=== PATIENT | male | born 1950 | race Caucasian/White ===

== ENCOUNTER 2018-10-06 19:24 | Emergency (ER) ==
[2018-10-06 19:37] VITALS: BP 155/79; TEMP 97.5; BMI 33.1
--- NOTE | 2018-10-06 20:15 | CT ---
Exam: Head CT. Date: 10/06/2018. Comparison: None. HISTORY: Fell on that the right-sided head. TECHNIQUE: Helical scan of the brain was performed. FINDINGS: The calvarium is intact. The paranasal sinuses and mastoid air cells are clear. The brainstem and cerebellum are within normal limits. There are benign-appearing ganglial calcifica tions. No abnormal intra or extra-axial fluid, mass or mass effect is present. There is no midline shift or hydrocephalus. No large vessel infarct or hemorrhage is observed. The macias-white interface is maintained. Impression: No acute intracranial findings.
--- NOTE | 2018-10-06 20:19 | CT ---
Exam: CT scan of the cervical spine. Date: 10/06/2018. Comparison: None. HISTORY: Fell and hit the right side of the head. TECHNIQUE: Helical scan of the cervical spine was performed. FINDINGS: No prevertebral soft tissue swelling is seen. There is mild osteophytic spurring loss of joint space and subchondral cysts at C3-4. There is anterior osteophytic spurring at C4-5. There is loss of disc space height with osteophytic spurring at C5-6. There is osteophytic spurring at C6-7. The vertebral body heights are maintained at all levels. The odontoid process is intact. Segmental analysis: C1-2: No abnormalities are seen. C2-3: No abnormalities are seen. C3-4: The canal is congenitally small with mild diffuse disc bulge causing central canal stenosis. There is mild bilateral neural foraminal narrowing from uncinate process arthropathy. C4-5: The canal is congenitally small. The foramen are patent. C5-6: The canal is congenitally small with mild disc osteophyte complex. There is mild right neural foraminal narrowing from uncinate process arthropathy. C6-7: The canal is congenitally small with a small central midline disc protrusion. The foramen are patent. C7-T1: There is no significant impression upon the thecal sac. There is moderate to severe right ne ural foraminal narrowing from facet arthropathy. There is mild left neural foraminal narrowing from facet arthropathy. Impression: No acute osseous abnormality in the cervical spine. 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 If further evaluation is needed then MRI would be suggested.
--- NOTE | 2018-10-06 20:21 | CT ---
Exam: CT chest without contrast Date: 10/06/2018 Comparison: None. History: Right-sided chest pain after a fall hitting the side of a forklift. TECHNIQUE: Axial CT images through the chest were obtained without IV contrast. FINDINGS: No consolidation, pleural effusion, or pneumothorax. There is linear atelectasis in the r ight lower lobe. There are coronary artery calcifications. No pericardial effusion. There are athe romatous changes of the thoracic aorta without aneurysm or intramural hematoma seen. Aortic dissecti on and pulmonary embolism cannot be excluded without IV contrast. No mediastinal or hilar lymphadeno yolis. There are calcified left hilar lymph nodes. No axillary lymphadenopathy. There is bilateral gynecomastia. Acute right sixth and seventh rib fractures are seen. No acute thoracic spine fractur e identified. The sternum is intact. The clavicles are intact. The scapulae are intact. Mild diff use fatty infiltration of the liver. Impression: Acute right sixth and seventh rib fractures.
[2018-10-06] MEDS ORDERED: NORCO 7.5-325 PO STA (20:25)
--- NOTE | 2018-10-06 20:29 | ED.PDOC ---
General ED Provider: Dr. NATI VALDEZ-ER Chief Complaint: Fall Stated Complaint: fell at work--bruising over left eye and right chest wall pain Time Seen by Physician: 19:30 Mode of Arrival: Walk-In Information Source: Patient Exam Limitations: Physical impairment Primary Care Provider: ROGER ROE Nursing and Triage Documentation Reviewed and Agree: Yes Does patient meet sepsis criteria?: No System Inflammatory Response Syndrome: Not Applicable Sepsis Protocol: For patient's 13 years and over: Temp is 96.8 and below OR 101 and greater Pulse >90 BPM Resp >20/minute Acutely Altered Mental Status Are patient's symptoms suggestive of a new infection, such as: -Pneumonia -Skin, Soft Tissue -Endocarditis -UTI -Bone, Joint Infection -Implantable Device -Acute Abdominal Infection -Wound Infection -Meningitis -Blood Stream Catheter Infection -Unknown Trauma/Injury Complaint Exam - Truncal Trauma Complaint/Exam Location of Pain: Reports: Right, Chest Onset: 2 days ago Symptoms Are: Still present Onset of Pain: Reports: Immediate Initial Severity: Mild Current Severity: Moderate Mechanism: Reports: Fall Aggravating: Reports: Movement, Deep breathing, Cough Alleviating: Reports: None Associated Signs and Symptoms: Reports: Chest pain Immobilization Removed Post Exam: No Vertebral Tenderness Present: No Vertebral Deformity Present: No Trachial Deviation Present: No JVD Present: No Crepitus Present: No Diminished Breath Sounds: Yes Reproducible Pain at: right chest wall Muffled Heart Sounds Present: No Paradoxical Chest Wall Movement Present: No Abdominal Guarding Present: No Abdominal Rigidity Present: No Referred Shoulder Pain (Kehr's Sign) Present: No Skin Findings: Present: Contusion, Ecchymosis, Hematoma, Tenderness Differential Diagnoses: Chest Wall Contusion, Rib Fracture Review of Systems - Review Of Systems Constitutional: Reports: No symptoms Eyes: Reports: No symptoms Ears, Nose, Mouth, Throat: Reports: No symptoms Respiratory: Reports: No symptoms Cardiac: Reports: No symptoms GI: Reports: No symptoms : Reports: No symptoms Musculoskeletal: Reports: No symptoms Skin: Reports: Bruising Neurological: Reports: No symptoms Endocrine: Reports: No symptoms Hematologic/Lymphatic: Reports: No symptoms All Other Systems: Reviewed and Negative Past Medical History - Past Medical History Previously Healthy: No Endocrine: Reports: Unknown Cardiovascular: Reports: Unknown Respiratory: Reports: Unknown Hematological: Reports: Unknown Gastrointestinal: Reports: Unknown Genitourinary: Reports: Unknown Neuro/Psych: Reports: Unknown Musculoskeletal: Reports: Unknown Cancer: Reports: Unknown - Surgical History General Surgical History: Reports: Unknown - Family History Family History: Reports: Unknown - Social History Smoking Status: Never smoker Hx Substance Use: No Alcohol Screening: None - Immunizations Tetanus Shot up to Date: Yes (2015) Physical Exam - Physical Exam Appearance: Well-appearing, No pain distress, Well-nourished Pain Distress: Moderate Eyes: JOSE F, EOMI, Conjunctiva clear ENT: Ears normal, Nose normal, Oropharynx normal Neck: Supple Respiratory: Airway patent, Breath sounds clear, Breath sounds equal, Respirations nonlabored Cardiovascular: RRR, Pulses normal, No rub, No murmur GI/: Soft, Nontender, No masses, Bowel sounds normal, No Organomegaly Musculoskeletal: Normal strength, ROM intact, No edema, No calf tenderness Skin: Warm, Dry, Normal color Neurological: Sensation intact, Motor intact, Reflexes intact, Cranial nerves intact, Alert, Oriented Psychiatric: Affect appropriate, Mood appropriate Interpretation - Radiology Interpretation Radiology Interpretation By: Radiologist Radiology Results: Positive Exam Interpreted: CT Scan Critical Care Note - Critical Care Note Total Time (mins): 0 Course - Course Orders, Labs, Meds: Orders Category Date Time Status Hydrocodone Bit/Acetaminophen [[place] 7.5-325] MEDS 10/06/18 20:25 Discontinued 1 tab PO ONCE STA CT CERVICAL SPINE W/O CONTRAST Stat RADS 10/06/18 19:[address] CHEST W/O CONTRAST Stat RADS 10/06/18 19:[address] HEAD W/O CONTRAST Stat RADS 10/06/18 19:43 Completed Medications Discontinued Medications Generic Name Dose Route Start Last Admin Trade Name Chaceq PRN Reason Stop Dose Admin Hydrocodone Bitart/Acetaminophen 1 tab 10/06/18 20:25 [place] 7.5-325 PO 10/06/18 20:26 ONCE STA Vital Signs: Temp Pulse Resp BP Pulse Ox 10/06/18 19:24 97.5 F L 94 H 22 155/79 H 95 Departure - Departure Time of Disposition: 20:30 Disposition: HOME SELF-CARE Discharge Problem: Rib fractures Qualifiers: Encounter type: initial encounter Rib fracture type: multiple ribs Fracture type: closed Laterality: right Qualified Code(s): S22.41XA - Multiple fractures of ribs, right side, initial encounter for closed fracture Instructions: Rib Fracture (ED) Condition: Good Pt referred to PMD for follow-up: Yes IPMP verified?: No Additional Instructions: f/u with pcp--- Allergies/Adverse Reactions: Allergies codeine Adverse Reaction (Verified 10/06/18 19:37) Disposition Discussed With: Patient, Family
== END 2018-10-06 20:35 | disposition home or self-care (01) ==
LOC: ED 19:24
DX: S22.41XA Multiple fractures of ribs, right side, initial encounter for closed fracture (principal); S00.12XA Contusion of left eyelid and periocular area, initial encounter; W19.XXXA Unspecified fall, initial encounter
CPT/HCPCS: 99282